=== PATIENT | female | born 1995 | race Caucasian/White ===

== ENCOUNTER 2025-05-02 19:54 | Emergency (ER) | payer MEDICAID ==
[~2025-05-02] VITALS: Ht 170.2 cm; Wt 79.5 kg
[2025-05-02 20:13] VITALS: TEMP 99.1
[2025-05-02 22:41] VITALS: BP 137/87; PULSE 90; RESP 18; O2SAT 100
[2025-05-02] MEDS ORDERED: IBUP-1492 PO (23:12)
[2025-05-02] MEDS ORDERED: HYDR-4062 PO (23:12)
[2025-05-02] MEDS: ONDANSETRON 4 MG TABLET PO ONE (23:22)
[2025-05-02] MEDS: HYDROCODONE/ACETAMINOPHEN 5-325 MG TABLET PO ONE (23:22)
== END 2025-05-03 01:19 | disposition home or self-care (01) ==
LOC: EMS 20:14
DX: S52.601A Unspecified fracture of lower end of right ulna, initial encounter for closed fracture (principal); Z90.89 Acquired absence of other organs; Z79.899 Other long term (current) drug therapy; W22.03XA Walked into furniture, initial encounter; Y93.89 Activity, other specified; Y92.89 Other specified places as the place of occurrence of the external cause; Y99.8 Other external cause status
CPT/HCPCS: 99284; 73090; 73110; Q0162

== ENCOUNTER 2025-06-15 00:31 | Emergency (ER) | payer SELFPAY ==
[~2025-06-15] VITALS: Ht 170.2 cm; Wt 84.1 kg
[~2025-06-15 00:31] MED LIST: HYDR-4062 PO; IBUP-1492 PO
[2025-06-15 00:53] VITALS: BP 126/96; PULSE 64; RESP 16; TEMP 98.1; O2SAT 100
[2025-06-15] MEDS ORDERED: AMOX1TAB15 PO (03:47)
[2025-06-15] MEDS: PERTUSS(ACELL),DIPH,TET/PF 0.5 ML SYRINGE [ADULT] IM. ONE (03:51)
== END 2025-06-15 04:00 | disposition home or self-care (01) ==
LOC: EMS 00:45
DX: S61.452A Open bite of left hand, initial encounter (principal); F42.9 Obsessive-compulsive disorder, unspecified; F41.9 Anxiety disorder, unspecified; F32.A Depression, unspecified; Z90.89 Acquired absence of other organs; Z88.2 Allergy status to sulfonamides; Z88.1 Allergy status to other antibiotic agents; W55.01XA Bitten by cat, initial encounter; Y93.89 Activity, other specified; Y92.89 Other specified places as the place of occurrence of the external cause; Y99.8 Other external cause status
CPT/HCPCS: 90471; 90715; 99283